=== PATIENT | male | born 1990 ===

== ENCOUNTER 2021-12-01 20:58 | Emergency (ER) | payer BC ==
[2021-12-01] MEDS ORDERED: Sodium Chloride 0.9% 1,000 ML IV ONE (21:12)
[2021-12-01] MEDS ORDERED: Ketorolac 30 MG/ML SDV IVPUSH ONE (21:23)
[2021-12-01 21:51] LABS: CARBON DIOXIDE,CO2 26.1 mmol/L (21.0-32.0); POTASSIUM,K 3.7 mmol/L (3.5-5.1)
[2021-12-01] MEDS ORDERED: Iopamidol 755 MG/ML 500 ML Multipack Bottle IVPUSH STA (22:21)
== END 2021-12-02 00:04 | disposition home or self-care (01) ==
LOC: MW.ED 20:58
DX: U07.1 COVID-19 (principal)
CPT/HCPCS: 36415; 71045; 71275; 80053; 85025; 87635; 93005; 96361; 96374; 99285; J1885; J7030; Q9967; 93010; 99284; U0002

== ENCOUNTER 2022-12-19 14:05 | Emergency (ER) | payer BC ==
[2022-12-19] MEDS ORDERED: Sodium Chloride 0.9% 10 ML Syringe FLUSH PRN (18:57)
[2022-12-19] MEDS ORDERED: Sodium Chloride 0.9% 2.5 ML Syringe FLUSH PRN (18:57)
[2022-12-19] MEDS ORDERED: Ketorolac 30 MG/ML SDV IVPUSH ONE (18:57)
[2022-12-19] MEDS ORDERED: Sodium Chloride 0.9% 1,000 ML IV ONE (18:57)
[2022-12-19] MEDS ORDERED: Ondansetron 4 MG/2 ML SDV IVPUSH ONE (18:57)
[2022-12-19] MEDS ORDERED: Clindamycin Phosphate in D5W 600 MG in Premix Bag 1 BAG IV ONE ×2 (18:57)
[2022-12-19] MEDS ORDERED: Dexamethasone 10 MG/ML SDV IVPUSH ONE (19:00)
[2022-12-19 19:33] LABS: BASOPHILS ABSOLUTE AUTO 0.1 K/uL (0.0-0.1); BASOPHILS PERCENT AUTO 0.3 % (0.0-1.5); EOSINOPHILS ABSOLUTE AUTO 0.2 K/uL (0.0-0.7); HEMATOCRIT 52.2 % (38.0-50.0); HEMOGLOBIN 17.8 g/dL (13.0-17.0); LYMPHOCYTES PERCENT AUTO 28.4 % (16.0-40.0); MEAN CORPUSCULAR HEMOGLOBIN 29.3 pg (27.0-32.0); MEAN CORPUSCULAR HGB CONC 34.1 g/dL (31.0-37.0); MONOCYTES ABSOLUTE AUTO 1.8 K/uL (0.0-0.8); MONOCYTES PERCENT AUTO 8.3 % (0.0-15.0); NEUTROPHILS ABSOLUTE AUTO 13.2 K/uL (1.4-5.7); NRBC ABSOLUTE 0 K/uL; PLATELET COUNT,PLT 385 K/uL (150-400); RED BLOOD CELL COUNT 6.07 M/uL (4.50-5.90); WHITE BLOOD CELL COUNT,WBC 21.25 K/uL (4.0-11.0)
[2022-12-19 19:54] LABS: A/G RATIO 0.8 (0.9-1.6); ALBUMIN 3.6 g/dL (3.4-5.0); BILIRUBIN TOTAL 0.5 mg/dL (0.2-1.0); CALCIUM 9.3 mg/dL (8.5-10.1); CARBON DIOXIDE,CO2 25.6 mmol/L (21.0-32.0); CREATININE 0.8 mg/dL (0.8-1.3); EST CRCL DRUG DOSING (CG) 147.04 mL/min; PROTEIN TOTAL,TP 8.1 g/dL (6.4-8.2)
[2022-12-19 19:59] LABS: LACTIC ACID 1.3 mmol/L (0.4-2.0)
[2022-12-19] MEDS ORDERED: Iopamidol 755 MG/ML 500 ML Multipack Bottle IVPUSH ONE (20:04)
== END 2022-12-19 21:46 | disposition home or self-care (01) ==
LOC: MW.ED 14:05
DX: L03.211 Cellulitis of face (principal); Z88.0 Allergy status to penicillin; Z88.1 Allergy status to other antibiotic agents
CPT/HCPCS: 36415; 70487; 80053; 83605; 85025; 96361; 96365; 96375; 99284; J1100; J1885; J2405; J3490; J7030; Q9967

== ENCOUNTER 2023-12-24 08:40 | Emergency (ER) | payer BC ==
[2023-12-24] MEDS: Albuterol/Ipratropium 3.0-0.5 MG/3 ML Neb Soln NEB ONE (09:06)
== END 2023-12-24 10:24 | disposition home or self-care (01) ==
LOC: MW.ED 08:40
DX: J40 Bronchitis, not specified as acute or chronic (principal); Z75.8 Other problems related to medical facilities and other health care; F17.210 Nicotine dependence, cigarettes, uncomplicated; Z88.0 Allergy status to penicillin; Z88.1 Allergy status to other antibiotic agents
CPT/HCPCS: 71046; 71046-26; 99283; 99285; J7620-GY